=== PATIENT | female | born 1950 | race Two or more races ===

== ENCOUNTER → 2024-06-19 | Outpatient (CLI) | payer MEDICARE, SELFPAY ==
[2024-06-19 08:36] LABS: Basophils # (Auto) 0.1 Thou/mm3 (0.0-0.2); Basophils % (Auto) 1 % (0-2.5); Eosinophils # (Auto) 0.2 Thou/mm3 (0.0-0.5); Eosinophils % (Auto) 3 % (0-10); Hematocrit 42.3 % (36.0-46.0); Hemoglobin 13.6 g/dL (12.0-16.0); Immature Granulocytes % (Auto) 0 % (0-0); Immature Granulocytes Auto 0.01 Thou/mm3 (0.00-0.00); Lymphocytes % (Auto) 51 % (10-50); Mean Corpuscular HGB Conc 32.2 g/dl (31.0-37.0); Mean Corpuscular Hemoglobin 27.3 pg (25.0-35.0); Mean Corpuscular Volume 85 fL (80-100); Monocytes # (Auto) 0.4 Thou/mm3 (0.0-0.8); Monocytes % (Auto) 7 % (0-12); Neutrophils # (Auto) 2.2 Thou/mm3 (1.8-7.7); Neutrophils % (Auto) 38 % (37-80); Nucleated Red Blood Cell % 0 /100 WBC (0); Platelet Count 179 Thou/mm3 (140-440); RDW Standard Deviation 38.6 fL (36.4-46.3); Red Blood Count 4.99 Miln/mm3 (4.00-5.20); White Blood Count 5.9 Thou/mm3 (3.6-11.0)
[2024-06-19 08:43] LABS: Alanine Aminotransferase 15 U/L (10-49); Albumin, Serum 4.2 gm/dL (3.4-4.8); Albumin/Globulin Ratio 1.4 (1.2-2.2); Alkaline Phosphatase 139 U/L (46-116); Anion Gap 5 (7-16); Aspartate Amino Transferase 18 U/L (0-34); BUN/Creatinine Ratio 26 Ratio (12-20); Bilirubin,Total 0.5 mg/dL (0.3-1.2); Blood Urea Nitrogen 21 mg/dL (9-23); Calcium 9.5 mg/dL (8.3-10.6); Calcium (Corrected) 9.5 mg/dL (8.5-10.1); Carbon Dioxide 31.3 mMol/L (20.0-31.0); Chloride 102 mMol/L (98-107); Cholesterol 256 mg/dL (132-200); Creatinine (Component) 0.8 mg/dL (0.6-1.3); Glucose 130 mg/dL (74-106); HDL Cholesterol 43 mg/dL (40-60); LDL Cholesterol,Calculated 151 mg/dL (0-130); Osmolality,Calculated 280 (275-295); Potassium 3.5 mMol/L (3.4-5.1); Sodium 138 mMol/L (136-145); Total Protein 7.2 gm/dL (5.7-8.2); Triglycerides 309 mg/dL (30-150); eGFR > 60 See Note
[2024-06-19 08:45] LABS: Creatinine MALB Rnd Ur 64 mg/dL (30-125); Microalbumin Creat Ratio 20 mg/gCrea (<30); Microalbumin, Random Urine 13 mg/L (0-300)
== END | disposition home or self-care (01) ==
PROVIDERS: PCP Family Medicine; Referring Provider Nurse Practitioner Family; Visit Provider Nurse Practitioner Family
DX: E11.9 Type 2 diabetes mellitus without complications (principal); M79.89 Other specified soft tissue disorders
CPT/HCPCS: 36415; 80053; 80061; 82043; 82570; 85025

== ENCOUNTER → 2024-08-20 | Outpatient (CLI) | payer MEDICARE, SELFPAY ==
[2024-08-20 08:26] LABS: Basophils # (Auto) 0.1 Thou/mm3 (0.0-0.2); Basophils % (Auto) 1 % (0-2.5); Eosinophils # (Auto) 0.2 Thou/mm3 (0.0-0.5); Eosinophils % (Auto) 3 % (0-10); Hemoglobin 12.2 g/dL (12.0-16.0); Immature Granulocytes % (Auto) 0 % (0-0); Immature Granulocytes Auto 0.02 Thou/mm3 (0.00-0.00); Lymphocytes # (Auto) 2.4 Thou/mm3 (1.0-4.8); Lymphocytes % (Auto) 37 % (10-50); Mean Corpuscular HGB Conc 32.1 g/dl (31.0-37.0); Mean Corpuscular Hemoglobin 27.4 pg (25.0-35.0); Mean Corpuscular Volume 85 fL (80-100); Monocytes # (Auto) 0.5 Thou/mm3 (0.0-0.8); Monocytes % (Auto) 8 % (0-12); Neutrophils # (Auto) 3.3 Thou/mm3 (1.8-7.7); Neutrophils % (Auto) 52 % (37-80); Nucleated Red Blood Cell % 0 /100 WBC (0); Platelet Count 144 Thou/mm3 (140-440); RDW Standard Deviation 40.3 fL (36.4-46.3); Red Blood Count 4.45 Miln/mm3 (4.00-5.20); White Blood Count 6.4 Thou/mm3 (3.6-11.0)
[2024-08-20 08:46] LABS: Anion Gap 8 (7-16); BUN/Creatinine Ratio 25 Ratio (12-20); Blood Urea Nitrogen 20 mg/dL (9-23); Calcium 8.7 mg/dL (8.3-10.6); Carbon Dioxide 27.8 mMol/L (20.0-31.0); Chloride 105 mMol/L (98-107); Creatinine (Component) 0.8 mg/dL (0.6-1.3); Glucose 204 mg/dL (74-106); Osmolality,Calculated 289 (275-295); Potassium 3.9 mMol/L (3.4-5.1); Sodium 141 mMol/L (136-145); eGFR > 60 See Note
[2024-08-20 09:16] LABS: Partial Thromboplastin Time 26.2 Seconds (22.0-36.0); Prothrombin Time 10.9 Seconds (9.0-12.2)
== END | disposition home or self-care (01) ==
LOC: COPL 07:29
PROVIDERS: PCP Nurse Practitioner Family; Referring Provider Internal Medicine; Visit Provider Internal Medicine
DX: I25.10 Atherosclerotic heart disease of native coronary artery without angina pectoris (principal); I48.91 Unspecified atrial fibrillation
CPT/HCPCS: 36415; 80048; 85025; 85610; 85730

== ENCOUNTER 2024-11-21 13:56 | Emergency (ER) | payer MEDICARE, SELFPAY ==
[2024-11-21 14:17] VITALS: BP 171/77; PULSE 72; RESP 17; TEMP 36.6; O2SAT 96; BMI 32.5
--- NOTE | 2024-11-21 14:26 | XR_ITS ---
Examination: CT abdomen with intravenous contrast CT pelvis with intravenous contrast 2-D coronal reconstructions 2-D sagittal reconstructions Date and time of exam:November 21, 20242012 hrs. Indications: Sharp abdominal pain with rectal bleeding beginning 2 days ago. CTDI: vol (mGy) 9.83 DLP: (mGycm) 591 Technique: Multiple axial sections of the abdomen and pelvis have been obtained. 64 slice high-resolution scanner used. 3 mm axial sections have been obtained, post intravenous injection 60 cc [id number] 2-D sagittal, coronal reconstructions obtained. Low dose protocols were performed. One or more of the following dose reduction techniques were used; automated exposure control, adjustment of the mA and/or KV according to patient size, use of iterative reconstruction technique. Findings: Diffuse fatty infiltration throughout the liver Gallbladder is not visualized No common hepatic or common bile duct stones Spleen is not enlarged No pancreatic or adrenal mass No renal or ureteral calculi, no hydronephrosis No pericecal inflammatory change No diverticulitis Mild thickening of urinary bladder wall up to 4 mm Atrophic anteverted uterus The rectal wall is thickened, axial image 244 Moderate disc narrowing L5-S1 Impression: The rectal wall is thickened, differential would include proctitis, early rectal tumor not excluded, recommend direct inspection Mild cystitis pattern
--- NOTE | 2024-11-21 14:26 | PD.EDRME ---
Rapid Medical Screening Exam RME Arrival date/time: 11/21/24 13:56 74-year-old female who is scheduled to have a colonoscopy on Sunday presents with complaints of rectal bleeding and extremity swelling Chief Complaint: GI Bleed Vital signs: Vital Signs Temperature 97.9 F 11/21/24 14:17 Pulse Rate 72 11/21/24 14:17 Respiratory Rate 17 11/21/24 14:17 Blood Pressure 171/77 H 11/21/24 14:17 Pulse Oximetry (%) 96 11/21/24 14:17 Oxygen Delivery Method Room Air 11/21/24 14:17
[2024-11-21 14:48] LABS: Basophils # (Auto) 0.1 Thou/mm3 (0.0-0.2); Basophils % (Auto) 1 % (0-2.5); Eosinophils # (Auto) 0.2 Thou/mm3 (0.0-0.5); Eosinophils % (Auto) 3 % (0-10); Hematocrit 37.9 % (36.0-46.0); Hemoglobin 12.4 g/dL (12.0-16.0); Immature Granulocytes % (Auto) 0 % (0-0); Immature Granulocytes Auto 0.01 Thou/mm3 (0.00-0.00); Lymphocytes # (Auto) 2.5 Thou/mm3 (1.0-4.8); Lymphocytes % (Auto) 38 % (10-50); Mean Corpuscular HGB Conc 32.7 g/dl (31.0-37.0); Mean Corpuscular Hemoglobin 27.4 pg (25.0-35.0); Mean Corpuscular Volume 84 fL (80-100); Monocytes # (Auto) 0.4 Thou/mm3 (0.0-0.8); Monocytes % (Auto) 7 % (0-12); Neutrophils # (Auto) 3.3 Thou/mm3 (1.8-7.7); Neutrophils % (Auto) 51 % (37-80); Nucleated Red Blood Cell % 0 /100 WBC (0); Platelet Count 175 Thou/mm3 (140-440); RDW Standard Deviation 37.6 fL (36.4-46.3); Red Blood Count 4.52 Miln/mm3 (4.00-5.20); White Blood Count 6.5 Thou/mm3 (3.6-11.0)
[2024-11-21 15:05] LABS: Partial Thromboplastin Time 26.2 Seconds (22.0-36.0); Prothrombin Time 10.7 Seconds (9.0-12.2)
[2024-11-21 15:09] LABS: Alanine Aminotransferase 12 U/L (10-49); Albumin, Serum 3.8 gm/dL (3.4-4.8); Albumin/Globulin Ratio 1.2 (1.2-2.2); Alkaline Phosphatase 130 U/L (46-116); Anion Gap 9 (7-16); Aspartate Amino Transferase 19 U/L (0-34); B-Type Natriuretic Peptide 64 pg/mL (0-100); BUN/Creatinine Ratio 17 Ratio (12-20); Bilirubin,Total 0.6 mg/dL (0.3-1.2); Blood Urea Nitrogen 15 mg/dL (9-23); Calcium 8.9 mg/dL (8.3-10.6); Calcium (Corrected) 9.1 mg/dL (8.5-10.1); Carbon Dioxide 27.4 mMol/L (20.0-31.0); Chloride 105 mMol/L (98-107); Creatinine (Component) 0.9 mg/dL (0.6-1.3); Estimated Creatinine Clearance 58.3 mL/min (>60); Globulin 3.3 gm/dL (2.3-3.5); Glucose 116 mg/dL (74-106); Lipase 25 U/L (12-53); Osmolality,Calculated 283 (275-295); Potassium 3.5 mMol/L (3.4-5.1); Sodium 141 mMol/L (136-145); Total Protein 7.1 gm/dL (5.7-8.2); eGFR > 60 See Note
[2024-11-21 15:13] LABS: Collection Type, Urine Clean Catch
[2024-11-21 15:18] LABS: Bilirubin,Urine Negative (Negative); Blood,Urine Negative (Negative); Clarity,Urine Clear (Clear/Hazy); Color,Urine Lt-Yellow (Lt Yel-Yel); Culture Indicated,Urine Not Indicated; Glucose, Urine Negative (Negative); Ketones,Urine Negative (Negative); Leukocyte Esterase,Urine Positive (Negative); Nitrite,Urine Negative (Negative); PH,Urine 5.5 (5.0-7.0); Protein,Urine Negative (Neg - Trace); RBC,Urine 1 /hpf (0-3); Specific Gravity,Urine 1.012 (1.001-1.035); Squamous Epithelial Cell,Urine 2 /hpf (0-5); Urobilinogen,Urine Negative mg/dL (0.0-1.0); WBC,Urine 3 /hpf (0-5)
[2024-11-21 19:21] VITALS: BP 186/63; PULSE 70; RESP 17; TEMP 36.6; O2SAT 96
--- NOTE | 2024-11-21 20:04 | PD.EDGIBLD ---
ED GI Bleed RME/HPI General Chief complaint: GI Bleed Stated complaint: Rectal bleed Time Seen by Provider: 11/21/24 19:20 Arrival date/time: 11/21/24 13:56 RME / HPI RME / HPI Narrative: 74-year-old female patient with significant history of hypertension diabetes mellitus, came in for evaluation regarding rectal bleeding. Patient had a rectal bleeding since last night while trying to go to the restroom, patient noted bright red blood with blood clots, Patient also complained of abdominal discomfort severity mild. Also complaining of generalized swelling. Patient denies any dizziness. Denies any other complaints or medications taken prior travel. Patient scheduled for colonoscopy this coming Sunday by Dr. Valdes. Related Data Home Medications ?Medication ?Instructions ?Recorded ?Confirmed lisinopril 20 mg tablet 20 mg PO QDAY 05/24/18 08/02/20 metformin 1,000 mg tablet 1,000 mg PO BID 05/24/18 10/12/20 evolocumab 140 mg/mL subcutaneous 140 mg subcut [facility] 08/02/20 10/12/20 pen injector (Repatha SureClick) pantoprazole 40 mg tablet,delayed 40 mg PO QDAY 08/02/20 10/12/20 release semaglutide 1 mg/dose (2 mg/1.5 See Rx Instructions .Route .COMPLEX 08/02/20 10/12/20 mL) subcutaneous pen injector (Ozempic) Previous Rx's ?Medication ?Instructions ?Recorded cephalexin 500 mg capsule 500 mg PO TID #14 caps 10/31/22 Allergies Allergy/AdvReac Type Severity Reaction Status Date / Time No Known Allergies Allergy Verified 11/21/24 14:00 Review of Systems Review of Systems Narrative Review of Systems: Review of system reviewed and within normal limits except mentioned in HPI ED Exam Narrative Physical exam: VITAL SIGNS: Reviewed. GENERAL APPEARANCE: Alert and interactive, follows commands, no acute distress, HEAD AND FACE: Non-traumatic. ENT: PERRL, pink conjunctivitis, eyelid no trauma, Mucous membrane moist. NECK: Supple, nontender, no nuchal rigidity. CHEST: No tenderness, no crepitus, no paradoxical movement, no retractions. LUNGS: Clear, well ventilated, symmetric, no rales, no wheezing, no ronchi, no stridor, good breath sounds bilaterally. HEART: Regular rate, regular rhythm, no murmur, no gallops. ABDOMEN: Soft, positive bowel sounds, nondistended, no guarding, nontender, no rebound, no masses, RECTAL: Deferred. GENITAL: Deferred. NEUROLOGICAL: Gross motor function intact sensory function intact, Appropriate for age. MUSCULOSKELETAL: low back nontender, full range of motion. EXTREMITIES: Nontender, full range of motion. +1 lower extremity edema SKIN: Color pink, dry, no rash, no lacerations, no abrasions, no contusions. LYMPHATICS: Deferred. Course Quality Measures none Orders Category Date Time Status CT Screening NOW Care 11/21/24 14:26 Active Insert IV NOW Care 11/21/24 19:[address] abdomen pelvis w con Stat Exams 11/21/24 14:26 Completed BNP [B-Type Natriuretic Peptide] Stat Lab 11/21/24 14:30 Completed CBC Stat Lab 11/21/24 14:30 Completed Comprehensive Metabolic Panel Stat Lab 11/21/24 14:30 Completed Lipase Stat Lab 11/21/24 14:30 Completed PT [Prothrombin Time with INR] Stat Lab 11/21/24 14:30 Completed PTT [Partial Thromboplastin Time] Stat Lab 11/21/24 14:30 Completed UA, C/S IF [Urinalysis, C/S if Indicated] Stat Lab 11/21/24 14:25 Completed Vital Signs Vital signs: Vital Signs Temperature 97.9 F 11/21/24 14:17 Pulse Rate 72 11/21/24 14:17 Respiratory Rate 17 11/21/24 14:17 Blood Pressure 171/77 H 11/21/24 14:17 Pulse Oximetry (%) 96 11/21/24 14:17 Oxygen Delivery Method Room Air 11/21/24 14:17 GI Bleed MDM Narrative MDM Narrative:: 74-year-old female patient with significant history of hypertension diabetes mellitus, came in for evaluation regarding rectal bleeding. Patient had a rectal bleeding since last night while trying to go to the restroom, patient noted bright red blood with blood clots, Patient also complained of abdominal discomfort severity mild. Also complaining of generalized swelling. Patient denies any dizziness. Denies any other complaints or medications taken prior travel. Patient scheduled for colonoscopy this coming Sunday by Dr. Valdes. Patient's workup today all came back unremarkable there is no sign of anemia. The rest of the labs unremarkable CT scan of the abdomen and pelvis showed The rectal wall is thickened, differential would include proctitis, early rectal tumor not excluded, recommend direct inspection Mild cystitis pattern Patient data External records reviewed:: None Clinical information provided by:: patient Social determinants that could affect healthcare access:: none Patient has the following chronic illnesses:: Diabetes mellitus hypertension How is presenting disease/condition affected by chronic disease/condition?: uneffected by Evaluation data The following diagnostics were reviewed and interpreted by me:: lab results and radiology exam(s) Lab and/or radiology exams considered but not ordered:: None Interpretation Summary: See results in [facility] Medications / Prescriptions Medications or Prescriptions considered but not ordered:: None Medication administrations:: None Consultations Consultation(s) initiated? (list below): No Diagnosis GI bleed differential diagnosis: Lower gastrointestinal hemorrhage, hematochezia and anal fissure Most likely diagnosis given after review of the tests above:: Bright red blood per rectum Admission Indicated Admission indicated?: not indicated Admission Request Was there a request for admission?: No Disposition Plan Disposition Plan: Discharge Discharge Attestation Discharge Attestation: The patient and all family members were given an opportunity to ask questions and understood the discharge instructions. Discharge instructions specifically effects, indications for sooner follow up or return to the emergency department, and the expected course of current diagnosis. Patient condition: Stable Discharge Plan Plan Patient Disposition: HOME (Self Care) Disposition Comment: Stable Prescriptions/Referrals Prescriptions/Med Rec: No Action lisinopril 20 mg tablet 20 mg PO QDAY metformin 1,000 mg tablet 1,000 mg PO BID pantoprazole 40 mg tablet,delayed release (DR/EC) 40 mg PO QDAY Patient Comments: TAKE 1 TABLET BY MOUTH EVERY DAY Repatha SureClick 140 mg/mL pen injector 140 mg SUBCUT [facility] Patient Comments: INJECT 1 PEN SUBCUTANEOUSLY EVERY OTHER WEEK Ozempic 1 mg/dose (2 mg/1.5 mL) pen injector See Rx Instructions .ROUTE .COMPLEX Patient Comments: INJECT 1 MG ONCE WEEKLY Rx Instructions: 1 mg subcutaneously cephalexin 500 mg capsule 500 mg PO TID Qty: 14 0RF Referrals: Joan Murphy FNP [Primary Care Provider] - In 1 week Problem List Clinical Impression: Bright red blood per rectum Patient/Caregiver Discharge Instructions Discharge Activity: activity as tolerated Education Materials: Understanding Rectal Bleeding Additional Instructions: Thank you for the opportunity for serving you today. You are stable for discharged . You are advised to: Follow-up with your Dr. Valdes for your colonoscopy this coming Sunday Return to ED for worsening of symptoms Increase oral fluids Print Language: Swedish Stand Alone Forms: [employer] Award Info., Patient Portal Info Letter
[2024-11-21 21:23] VITALS: BP 161/72; PULSE 67; RESP 18; O2SAT 97
== END 2024-11-21 21:31 | disposition home or self-care (01) ==
PROVIDERS: Nurse Practitioner Primary Care; Emergency Provider Emergency Medicine; PCP Nurse Practitioner Family
DX: K62.5 Hemorrhage of anus and rectum (principal); E11.9 Type 2 diabetes mellitus without complications; I10 Essential (primary) hypertension; R10.9 Unspecified abdominal pain
CPT/HCPCS: 36415; 74177; 80053; 81001; 83690; 83880; 85025; 85610; 85730; 99285; A4649; Q9967

== ENCOUNTER 2024-11-25 09:15 | Day surgery (SDC) | payer MEDICARE, SELFPAY ==
[2024-11-25] VITALS (11 sets, daily range): BP systolic 118–204; BP diastolic 63–106; PULSE 61–86; RESP 12–20; TEMP 36.6–36.7; O2SAT 94–99; BMI 34.7
[2024-11-25] MEDS: MIDAZOLAM INJ 1 MG/ML VIAL 2 ML (ASD USE ONLY) 2 MG IV ×2 (11:23→11:26)
[2024-11-25] MEDS: RINGERS LACTATED 1000 ML 1,000 ML 60 ML IV (11:23)
[2024-11-25] MEDS: fentaNYL CIT INJ 50 mCg/ML AMP 2ML (ASD USE ONLY) IV ×2 (11:23→11:26)
[2024-11-25] MEDS: DiphenhydrAMINE INJ 50 MG/ML VIAL 25 MG IV (11:23)
== END 2024-11-25 12:40 | disposition home or self-care (01) ==
PROVIDERS: PCP Nurse Practitioner Family; Referring Provider Specialist; Visit Provider Specialist
PROC: 0DBE8ZX Excision of Large Intestine, Via Natural or Artificial Opening Endoscopic, Diagnostic (ICD-10-PCS; CPT 45380; principal; 2024-11-25 11:45)
DX: K64.1 Second degree hemorrhoids (principal)
CPT/HCPCS: 45378; 80053; 81001; 85025; 85610; 85730; J1200; J2250; J3010; J7120

== ENCOUNTER → 2025-02-04 | Outpatient (CLI) | payer MEDICARE, SELFPAY ==
[2025-02-04 08:37] LABS: Basophils # (Auto) 0.1 Thou/mm3 (0.0-0.2); Basophils % (Auto) 1 % (0-2.5); Eosinophils # (Auto) 0.2 Thou/mm3 (0.0-0.5); Eosinophils % (Auto) 3 % (0-10); Hematocrit 37.5 % (36.0-46.0); Hemoglobin 12.2 g/dL (12.0-16.0); Immature Granulocytes % (Auto) 0 % (0-0); Immature Granulocytes Auto 0.02 Thou/mm3 (0.00-0.00); Lymphocytes # (Auto) 2.4 Thou/mm3 (1.0-4.8); Lymphocytes % (Auto) 35 % (10-50); Mean Corpuscular HGB Conc 32.5 g/dl (31.0-37.0); Mean Corpuscular Hemoglobin 27.6 pg (25.0-35.0); Mean Corpuscular Volume 85 fL (80-100); Monocytes # (Auto) 0.5 Thou/mm3 (0.0-0.8); Monocytes % (Auto) 8 % (0-12); Neutrophils # (Auto) 3.5 Thou/mm3 (1.8-7.7); Neutrophils % (Auto) 53 % (37-80); Nucleated Red Blood Cell % 0 /100 WBC (0); Platelet Count 162 Thou/mm3 (140-440); Red Blood Count 4.42 Miln/mm3 (4.00-5.20); White Blood Count 6.7 Thou/mm3 (3.6-11.0)
[2025-02-04 08:51] LABS: Glucose Estimated Average 183 mg/dL (80-131)
[2025-02-04 08:55] LABS: Iron 69 mcg/dL (50-170); Percent Iron Saturation 20 % (20-55); Total Iron Binding Capacity 330 mcg/dL (250-425); Unsaturated Iron Binding 261 (225-295)
[2025-02-04 09:03] LABS: Vitamin B12 302 pg/mL (211-911); Vitamin D 25 Hydroxy Total 16.9 ng/mL (7.3-40.2)
[2025-02-04 09:05] LABS: Alanine Aminotransferase 13 U/L (10-49); Albumin, Serum 3.8 gm/dL (3.4-4.8); Albumin/Globulin Ratio 1.4 (1.2-2.2); Alkaline Phosphatase 121 U/L (46-116); Anion Gap 8 (7-16); Aspartate Amino Transferase 19 U/L (0-34); BUN/Creatinine Ratio 20 Ratio (12-20); Bilirubin,Total 0.5 mg/dL (0.3-1.2); Blood Urea Nitrogen 16 mg/dL (9-23); Calcium 8.3 mg/dL (8.3-10.6); Calcium (Corrected) 8.5 mg/dL (8.5-10.1); Cardiac Risk Estimate 6.9 RATIO (3.7-5.6); Chloride 104 mMol/L (98-107); Cholesterol 249 mg/dL (132-200); Creatinine (Component) 0.8 mg/dL (0.6-1.3); Free T4 (Free Thyroxine) 1.09 ng/dL (0.89-1.76); Globulin 2.7 gm/dL (2.3-3.5); Glucose 153 mg/dL (74-106); HDL Cholesterol 36 mg/dL (40-60); Osmolality,Calculated 285 (275-295); Potassium 3.7 mMol/L (3.4-5.1); Sodium 141 mMol/L (136-145); Thyroid Stimulating Hormone 2.44 uIU/mL (0.55-4.78); Total Protein 6.5 gm/dL (5.7-8.2); Triglycerides 439 mg/dL (30-150); eGFR > 60 See Note
== END | disposition home or self-care (01) ==
LOC: COPL 07:14
PROVIDERS: PCP Nurse Practitioner Family; Referring Provider Nurse Practitioner Family; Visit Provider Nurse Practitioner Family
DX: E11.42 Type 2 diabetes mellitus with diabetic polyneuropathy (principal); I10 Essential (primary) hypertension; E55.9 Vitamin D deficiency, unspecified; E78.00 Pure hypercholesterolemia, unspecified; Z13.29 Encounter for screening for other suspected endocrine disorder; Z13.0 Encounter for screening for diseases of the blood and blood-forming organs and certain disorders involving the immune mechanism
CPT/HCPCS: 36415; 80053; 80061; 82306; 82607; 83036; 83540; 83550; 84439; 84443; 85025

== ENCOUNTER → 2025-03-30 | Outpatient (CLI) | payer MEDICARE, SELFPAY ==
--- NOTE | 2025-03-30 10:38 | XR_ITS ---
Examination: Pelvic ultrasound, transabdominal, complete Technique: Transabdominal ultrasound of the pelvis performed using grayscale imaging Date and time of exam: March 30, 2025 1048 hours INDICATIONS: Right lower abdominal pain beginning 4 months ago FINDINGS: Uterus 7.7 cm endometrial stripe 14 mm No discrete uterine mass Ovaries obscured by bowel gas IMPRESSION: Abnormal thickening of the endometrial stripe, differential would include malignant neoplasm of the endometrium Recommend MRI pelvis follow-up pre and postcontrast
== END | disposition home or self-care (01) ==
LOC: CDIM 10:06
PROVIDERS: PCP Nurse Practitioner Family; Referring Provider Nurse Practitioner Family; Visit Provider Nurse Practitioner Family
DX: R93.89 Abnormal findings on diagnostic imaging of other specified body structures (principal)
CPT/HCPCS: 76856

== ENCOUNTER → 2025-04-28 | Outpatient (CLI) | payer MEDICARE, SELFPAY ==
[2025-04-28 10:33] LABS: Anion Gap 9 (7-16); BUN/Creatinine Ratio 19 Ratio (12-20); Blood Urea Nitrogen 17 mg/dL (9-23); Calcium 9.3 mg/dL (8.3-10.6); Carbon Dioxide 29.1 mMol/L (20.0-31.0); Chloride 104 mMol/L (98-107); Creatinine (Component) 0.9 mg/dL (0.6-1.3); Glucose 125 mg/dL (74-106); Osmolality,Calculated 285 (275-295); Potassium 4.1 mMol/L (3.4-5.1); Sodium 142 mMol/L (136-145); eGFR > 60 See Note
== END | disposition home or self-care (01) ==
LOC: COPL 09:23
PROVIDERS: PCP Family Medicine; Referring Provider Nurse Practitioner Family; Visit Provider Nurse Practitioner Family
DX: N85.00 Endometrial hyperplasia, unspecified (principal)
CPT/HCPCS: 36415; 80048

== ENCOUNTER → 2025-05-04 | Outpatient (CLI) | payer MEDICARE, SELFPAY ==
--- NOTE | 2025-05-04 17:00 | XR_ITS ---
Examination: MRI pelvis with intravenous contrast. MRI pelvis without intravenous contrast. Date and time of exam: May 04, 2025, 1733 hrs. Indications: Right-sided pelvic pain beginning 4 months ago, abnormal thickening of the endometrial stripe 14 mm on pelvis ultrasound March 30, 2025 Technique: Multiple axial, sagittal and coronal sections of the pelvis obtained. Transverse images, TR 6020, TE 107. T1 weighted transverse images, TR 582, TE 9.5. T2-weighted sagittal images, TR 4000, TE 105. T2-weighted sagittal images, TR 4000, TE 5. Coronal images, TR 4210, TE 107. Axial and coronal images are obtained post 17 cc intravenous injection, gadolinium. Findings: Uterus 8 x 3.2 x 3.4 cm Abnormal thickening of the endometrial stripe 11 mm No discrete uterine mass Ovaries are not diagnostically visualized Postcontrast images demonstrate 6 mm uterine body area of fibroid degeneration The endometrial stripe does not show enhancement on the postcontrast images No free fluid in the pelvis No pelvic adenopathy Impression: Thickening of the endometrial stripe 11 mm, signal characteristics favor endometrial hyperplasia rather than enhancing malignant neoplasm of the endometrium Recommend 6 month follow-up transvaginal pelvic sonography
== END | disposition home or self-care (01) ==
LOC: SMRI 16:18
PROVIDERS: PCP Nurse Practitioner Family; Referring Provider Nurse Practitioner Family; Visit Provider Nurse Practitioner Family
DX: R93.89 Abnormal findings on diagnostic imaging of other specified body structures (principal)
CPT/HCPCS: 72197; A9577

== ENCOUNTER → 2025-06-25 | Outpatient (CLI) | payer MEDICARE, SELFPAY ==
--- NOTE | 2025-06-25 | XR_ITS ---
Examination: Right hip AP, lateral, AP pelvis 3 views Technique: Hip AP lateral, AP pelvis, 3 views Exam date and time: June 25, 2025, 1121 hours INDICATIONS: Patient fell 3 weeks ago with injury of the right hip, right hip pain. FINDINGS: Moderate osteopenia. No right hip fracture or dislocation Left hip bones of the pelvis intact Mild to moderate bilateral hip osteoarthritis IMPRESSION: No hip or pelvic fracture.
== END | disposition home or self-care (01) ==
LOC: CDIM 10:47
PROVIDERS: PCP Family Medicine; Referring Provider Nurse Practitioner Family; Visit Provider Nurse Practitioner Family
DX: S79.911A Unspecified injury of right hip, initial encounter (principal); W19.XXXA Unspecified fall, initial encounter
CPT/HCPCS: 73502

== ENCOUNTER → 2025-07-28 | Outpatient (CLI) | payer MEDICARE, SELFPAY ==
[2025-07-31 07:47] LABS: CA 19-9 Antigen* 21 U/mL (<34)
== END | disposition home or self-care (01) ==
LOC: COPL 09:35
PROVIDERS: PCP Family Medicine; Referring Provider Nurse Practitioner Family; Visit Provider Nurse Practitioner Family
DX: Z80.9 Family history of malignant neoplasm, unspecified (principal)
CPT/HCPCS: 36415; 86301